=== PATIENT | female | born 1955 | race American Indian/Alaskan Native ===

== ENCOUNTER 2018-06-14 22:54 | Inpatient (IN) | payer MEDICARE, OTHER ==
[2018-06-14 23:12] VITALS: BMI 33.6
--- NOTE | 2018-06-14 23:24 | ED PDOC ---
Arrival/HPI - General Chief Complaint: Abdominal Pain Time Seen by Provider: 06/14/18 23:06 Historian: Patient - History of Present Illness Narrative History of Present Illness (Text): 06/14/18 23:24 Mackenzie Gagnon is a 63 year old female, whose past medical history includes colitis, diverticulitis, GERD, uterine fibroid, UTI, diabetes, anemoa, spinal stenosis, and anxiety, who presents to the complaining of abdominal pain. Patient states she has been experiencing intermittent LLQ pain for the past 3 weeks with associated constipation. Patient denies any fever, chills, chest pain , shortness of breath, nausea, vomiting, urinary symptoms, back pain, headache, dizziness, or any other complaints. Time/Duration: < month (3 weeks) Symptom Onset: Gradual Symptom Course: Intermittent Activities at Onset: Light Context: Home Past Medical History - Provider Review Nursing Documentation Reviewed: Yes - Past History Past History: No Previous - Infectious Disease Hx of Infectious Diseases: None - Tetanus Immunization Tetanus Immunization: Unknown - Cardiac Hx Cardiac Disorders: Yes Hx Hypertension: Yes - Pulmonary Hx Respiratory Disorders: Yes Hx Asthma: Yes (Some times. uses advair sometimes.) - Neurological Hx Neurological Disorder: No - HEENT Hx HEENT Disorder: Yes (Right ear hearing diminished , Hissing voice in Right ear.) Hx Deafness: Yes (Right ear.) - Renal Hx Renal Disorder: No - Endocrine/Metabolic Hx Endocrine Disorders: Yes Hx Diabetes Mellitus Type 2: Yes - Hematological/Oncological Hx Blood Disorders: Yes Hx Anemia: Yes Hx Sickle Cell Disease: Yes - Integumentary Hx Dermatological Disorder: No - Musculoskeletal/Rheumatological Hx Musculoskeletal Disorders: Yes Hx Back Pain: Yes Hx Falls: Yes Hx Spinal Stenosis: Yes - Gastrointestinal Hx Gastrointestinal Disorders: Yes (colitis and diverticulitis) Hx Gastroesophageal Reflux: Yes - Genitourinary/Gynecological Hx Genitourinary Disorders: Yes Other/Comment: Fibroid Hx positive. - Psychiatric Hx Psychophysiologic Disorder: Yes Hx Anxiety: Yes Hx Substance Use: No - Past Surgical History Past Surgical History: No Previous - Surgical History Other/Comment: Endoscopy + colonoscopy-2 polyps removed. - Anesthesia Hx Anesthesia: Yes Hx Anesthesia Reactions: No Hx Malignant Hyperthermia: No - Suicidal Assessment Feels Threatened In Home Enviroment: No Family/Social History - Physician Review Nursing Documentation Reviewed: Yes Family/Social History: Unknown Family HX Smoking Status: Never Smoked Hx Alcohol Use: No Hx Substance Use: No Hx Substance Use Treatment: No Allergies/Home Meds Allergies/Adverse Reactions: Allergies ketorolac tromethamine [From Toradol] Allergy (Verified 06/14/18 23:12) ANAPHYLAXIS Home Medications: Home Meds Medication Instructions Recorded Confirmed Carvedilol [Coreg] 12.5 mg PO BID 09/24/12 12/14/16 Rosuvastatin Calcium [Crestor] 20 mg PO DAILY 09/16/14 12/14/16 Albuterol Sulfate [Proair Hfa] 0.09 mg IH QID PRN 03/18/15 12/02/16 Dexlansoprazole [Dexilant] 60 mg PO DAILY 03/18/15 12/14/16 Zolpidem [Ambien] 10 mg PO HS 03/18/15 12/14/16 Review of Systems - Physician Review All systems were reviewed & negative as marked: Yes - Review of Systems Constitutional: Normal. absent: Fevers Eyes: Normal ENT: Normal Respiratory: Normal. absent: SOB, Cough Cardiovascular: Normal. absent: Chest Pain Gastrointestinal: Abdominal Pain, Constipation. absent: Diarrhea Genitourinary Female: Normal. absent: Dysuria, Frequency, Hematuria, Urine Output Changes Musculoskeletal: Normal. absent: Back Pain, Neck Pain Skin: Normal. absent: Rash Neurological: Normal. absent: Headache, Dizziness Endocrine: Normal Hemo/Lymphatic: Normal Psychiatric: Normal Physical Exam Vital Signs Reviewed: Yes Vital Signs Temp Pulse Resp BP Pulse Ox 06/15/18 04:30 57 L 16 128/81 96 06/15/18 03:12 98.6 F 63 18 122/71 97 06/14/18 23:11 97.6 F 63 19 149/76 99 Temperature: Afebrile Blood Pressure: Normal Pulse: Regular Respiratory Rate: Normal Appearance: Positive for: Well-Appearing, Non-Toxic, Comfortable Pain Distress: None Mental Status: Positive for: Alert and Oriented X 3 - Systems Exam Head: Present: Atraumatic, Normocephalic Pupils: Present: PERRL Extroacular Muscles: Present: EOMI Conjunctiva: Present: Normal Mouth: Present: Moist Mucous Membranes Neck: Present: Normal Range of Motion Respiratory/Chest: Present: Clear to Auscultation, Good Air Exchange. No: Respiratory Distress, Accessory Muscle Use Cardiovascular: Present: Regular Rate and Rhythm, Normal S1, S2. No: Murmurs Abdomen: Present: Tenderness (LLQ tenderness). No: Distention, Peritoneal Signs Back: Present: Normal Inspection Upper Extremity: Present: Normal Inspection. No: Cyanosis, Edema Lower Extremity: Present: Normal Inspection. No: Edema Neurological: Present: GCS=15, CN II-XII Intact, Speech Normal Skin: Present: Warm, Dry, Normal Color. No: Rashes Psychiatric: Present: Alert, Oriented x 3, Normal Insight, Normal Concentration Medical Decision Making ED Course and Treatment: 06/14/18 23:24 Impression: 63 year old female brought in for LLQ abdominal pain and constipation. Plan: -- CT Abdomen and Pelvis with IV contrast -- Labs, lipase -- Urinalysis -- IV fluids -- Morphine -- Zofran -- Reassess and disposition Progress Notes: 06/15/18 05:09 CT Abdomen and Pelvis reviewed, shows: Nonspecific gastritis thickening likely due to under distention. Correlation with clinical data is recommended if gastritis is suspected. Diverticulosis. Moderate amount of stool in the colon. Nonspecific colonic wall thickening. Correlation with patient's clinical history of constipation versus stool relate colitis versus under distention is recommended. No acute findings. 06/15/18 05:[address] Mustafa, who is aware and agrees with plan. Accepts pt in to his service. Pt will go to [facility] observation for colitis and UTI. Requests Dr. Alves on consult. - Lab Interpretations Lab Results: 06/14/18 23:47 06/15/18 00:50 Lab Results 06/15/18 03:25: Urine Color Yellow, Urine Appearance Clear, Urine pH 6.0, Ur Specific [place] 1.015, Urine Protein Negative, Urine Glucose (UA) Negative, Urine Ketones Negative, Urine Blood Trace-intact H, Urine Nitrate Negative, Urine Bilirubin Negative, Urine Urobilinogen 0.2, Ur Leukocyte Esterase Large H , Urine RBC 0 - 2, Urine WBC 10 - 15, Ur Epithelial Cells 1 - 3, Urine Bacteria Small 06/15/18 00:50: Sodium 143, Potassium 4.0, Chloride 107, Carbon Dioxide 28, Anion Gap 12, BUN 14, Creatinine 1.1, Est GFR ( Amer) > 60, Est GFR (Non- Af Amer) 50, Random Glucose 95, Calcium 9.4, Total Bilirubin 0.3, AST 31, ALT 26 , Alkaline Phosphatase 117, Total Protein 6.8, Albumin 3.9, Globulin 2.9, Albumin/Globulin Ratio 1.3, Lipase 207 06/14/18 23:47: WBC 7.7, RBC 4.19, Hgb 10.6 L, Hct 32.0 L, MCV 76.4 L, MCH 25.3 , MCHC 33.1, RDW 14.9 H, Plt Count 185, MPV 9.8 06/14/18 23:29: POC Glucose (mg/dL) 73 I have reviewed the lab results: Yes - RAD Interpretation Radiology Orders: 06/14/18 23:26 ABD & PELVIS IV CONTRAST ONLY [CT] Stat Carpet Installer: Radiologist - Medication Orders Current Medication Orders: Sodium Chloride (Sodium Chloride 0.9%) 1,000 mls @ 100 mls/hr IV .Q10H MARIA EUGENIA Last Admin: 06/14/18 23:50 Dose: 100 mls/hr eMAR Start Stop Document 06/14/18 23:50 KATHY (Rec: 06/14/18 23:56 [id number] Intravenous Solution Start Date 06/14/18 Start Time 23:50 Ceftriaxone Sodium (Rocephin 1 Gram Ivpb) 1 gm in 100 mls @ 200 mls/hr IV ONCE STA PRN Reason: Protocol Stop: 06/15/18 05:53 Metronidazole (Flagyl) 500 mg in 100 mls @ 100 mls/hr IVPB STAT STA PRN Reason: Protocol Stop: 06/15/18 06:24 Discontinued Medications Morphine Sulfate (Morphine) 2 mg IVP STAT STA Stop: 06/14/18 23:27 Last Admin: 06/14/18 23:55 Dose: 2 mg MAR Pain Assessment Document 06/14/18 23:55 (Rec: 06/14/18 23:56 [id number] Pain Reassessment Is this a pain reassessment? Yes Sleep Is patient sleeping during reassessment? No Presence of Pain Presence of Pain Yes Pain Scale Used Pain Scale Used Numeric Location Left, Right or Bilateral Left Upper or Lower Lower Pain Location Body Site Abdomen Description Description Constant Pain Behavior Irritability Rubbing Site IVP Administration Document 06/14/18 23:55 KATHY (Rec: 06/14/18 23:56 [id number][facility] Charges for Administration # of IVP Administrations 1 Re-Assess: MAR Pain Assessment Document 06/15/18 00:55 RG (Rec: 06/15/18 03:14 RG [id number]) Pain Reassessment Is this a pain reassessment? Yes Sleep Is patient sleeping during reassessment? Yes Ondansetron HCl (Zofran Inj) 4 mg IVP ONCE ONE Stop: 06/14/18 23:27 Last Admin: 06/14/18 23:51 Dose: 4 mg IVP Administration Document 06/14/18 23:51 RG (Rec: 06/14/18 23:55 RG [id number]) Charges for Administration # of IVP Administrations 1 - Scribe Statement The provider has reviewed the documentation as recorded by the Scribe Carolyn Glez All medical record entries made by the Scribe were at my direction and personally dictated by me. I have reviewed the chart and agree that the record accurately reflects my personal performance of the history, physical exam, medical decision making, and the department course for this patient. I have also personally directed, reviewed, and agree with the discharge instructions and disposition. Disposition/Present on Arrival - Present on Arrival Any Indicators Present on Arrival: No History of DVT/PE: No History of Uncontrolled Diabetes: Yes Urinary Catheter: No History of Decub. Ulcer: No History Surgical Site Infection Following: None - Disposition Have Diagnosis and Disposition been Completed?: Yes Diagnosis: Colitis, UTI (urinary tract infection) Disposition: HOSPITALIZED Disposition Time: 05:31 Patient Plan: Observation Patient Problems: Current Active Problems Problem Status Onset Colitis Acute UTI (urinary tract infection) Acute Condition: STABLE Referrals: Alissa Mcdaniels MD [Primary Care Provider] - Follow up with primary Forms: [employer] (Khmer)
[2018-06-14] MEDS ORDERED: Morphine 2 mg/ml ISec IVP STA (23:26)
[2018-06-14] MEDS: Sodium Chloride 0.9% 1,000 ML IV SCH (23:50)
[2018-06-15 00:02] LABS: HEMOGLOBIN 10.6 g/dL (12.0-16.0); MEAN CELL VOLUME 76.4 fl (80.0-105.0); MEAN CORPUSCULAR HEMOGLOBIN 25.3 pg (25.0-35.0); MEAN CORPUSCULAR HGB CONC 33.1 g/dl (31.0-37.0); MEAN PLATELET VOLUME 9.8 fl (7.0-11.0); RBC 4.19 10^6/uL (3.5-6.1); RED CELL DISTRIBUTION WIDTH 14.9 % (11.5-14.5); WHITE BLOOD COUNT 7.7 10^3/ul (4.5-11.0)
[2018-06-15 01:15] LABS: ALB/GLOB RATIO 1.3 (1.1-1.8); ALBUMIN 3.9 g/dL (3.0-4.8); ALT/SGPT 26 U/L (7-56); AST/SGOT 31 U/L (14-36); BLOOD UREA NITROGEN 14 mg/dL (7-21); CALCIUM 9.4 mg/dL (8.4-10.5); GFR AFRICAN-AMERICAN > 60; GFR NON-AFRICAN AMERICAN 50; LIPASE 207 U/L (23-300)
[2018-06-15] MEDS ORDERED: Iodixanol 320 MG/ML 100 ML BOTTLE IV ONE (02:09)
[2018-06-15 03:52] LABS: URINE BILIRUBIN NEGATIVE (NEGATIVE); URINE BLOOD TRACE-INTACT (NEGATIVE); URINE GLUCOSE (UA) NEGATIVE (NEGATIVE); URINE LEUKOCYTE ESTERASE LARGE Leu/uL (NEGATIVE); URINE PROTEIN NEGATIVE mg/dL (<30 mg/dL); URINE UROBILINOGEN 0.2 E.U./dL (<1 E.U./dL)
[2018-06-15 03:55] LABS: URINE APPEARANCE CLEAR (CLEAR); URINE COLOR YELLOW (YELLOW)
[2018-06-15 03:59] LABS: URINE RBC 0 - 2 /hpf (0-2)
[2018-06-15 04:00] LABS: URINE BACTERIA SMALL (NEG)
[2018-06-15] MEDS ORDERED: cefTRIAXone 1 gm 1 GM/100 ML BAG IV STA (05:24)
[2018-06-15] MEDS ORDERED: metroNIDAZOLE IV 500 mg/100 ml 500 MG/100 ML BAG IVPB STA (05:25)
[2018-06-15] MEDS ORDERED: Sodium Chloride 0.9% 1,000 ML IV STA (05:34)
[2018-06-15] MEDS: Morphine 2 mg/ml ISec IVP PRN ×2 (07:27→14:32)
--- NOTE | 2018-06-15 08:41 | HP ---
Copied To: James Mustafa DO Attending MD: James Mustafa DO HISTORY OF PRESENT ILLNESS: I saw her in the emergency room. I was called down to put her in the hospice. She is a 63-year-old female, who presents with abdominal pain for a few days, left lower quadrant. It has been going on for the past 3 weeks, but it got worse and now she having bad constipation and she is very uncomfortable. This is a 63-year-old female. PAST MEDICAL HISTORY: Colitis, diverticulitis, gastroesophageal reflux disease, uterine fibroids, UTI, diabetes, anemia, spinal stenosis, anxiety, abdominal pain, hypertension, asthma, diminished hearing on the right, hissing voice in the right ear, deafness in the right ear, back pain, falls. PAST SURGICAL HISTORY: She has had endoscopies, colonoscopies, 2 polyps removed. FAMILY HISTORY: Hypertension in the family. SOCIAL HISTORY: No smoker. No drinking. No drugs. ALLERGIES: ALLERGIC TO TORADOL. MEDICATIONS: She is on Coreg, Crestor, ProAir, Dexilant and Ambien. REVIEW OF SYSTEMS: She has no fevers. No acute vision or hearing changes. No shortness of breath or cough. No chest pain or palpitations. She has abdominal pain and constipation. No problems urinating. No back pain. No neck pain. No rashes or ulcers. No headache or dizziness. A little anxiety right now. PHYSICAL EXAMINATION: VITAL SIGNS: She has a 98.6 temp, 63 pulse, 18 respiratory rate, 122/71 blood pressure, 97% O2 sat on room air. GENERAL: She is well appearing, mildly toxic and uncomfortable in the emergency room, alert and oriented x3. HEENT: Head is atraumatic, normocephalic. Extraocular muscles are intact. Pupils equal, reactive to light. Throat is dry. NECK: Supple. HEART: Regular rate. Normal S1, S2. LUNGS: Decreased breath sounds bilaterally, poor inspiration effort, but there are no wheezes, rhonchi or rales. ABDOMEN: Left lower quadrant tenderness. Actually, the low abdomen has quite discomfort, but there are bowel sounds and is fairly soft. No guarding or rebound. No CVA tenderness. EXTREMITIES: Have no edema. NEUROLOGIC: GCS is 15. Cranial nerves II through XII grossly intact. Normal speech. Neurologically seems to be intact at this time. SKIN: Warm and dry. No apparent rashes or ulcers I could appreciate. LYMPHATICS: Thyroid midline. No palpable lymphadenopathy appreciated. Alert and oriented x3. LABORATORY DATA: She had multiple tests done. The CAT scan showed gastric thickening, likely due to under distention. Moderate amount of stool in the colon. 7.7 white count, 10.6 hemoglobin, 32 hematocrit with 185 platelets. Sodium is 143, potassium is 4, chloride 107, carbon dioxide 28, anion gap is 12, BUN 14, creatinine 1.1, GFR is greater than 60, sugar is 95, calcium is 9.4, total bili is 0.3, AST 31, ALT is 26, alk phos 117, total protein 6.8, albumin is 3.9, globulin 2.9, lipase 207. Last blood sugar was 73. Urine showed blood in the urine, white count 10-15, bacteria small. IMPRESSION: She was given Rocephin in the emergency room. I will continue that. I will consult GI and Infectious Disease. She will have IV fluids. She was given metronidazole and ceftriaxone in the ER, IV fluids. I ordered Zofran, Protonix and Dulcolax suppository and we will see how she does. Mackenzie Gagnon who has got abdominal pain, urinary tract infection, constipation. James Mustafa DO
--- NOTE | 2018-06-15 09:10 | CT ---
Date of service: 06/15/2018 PROCEDURE: CT Abdomen and Pelvis without intravenous contrast HISTORY: abdominal pain COMPARISON: None. TECHNIQUE: Technique. Contrast dose: Radiation dose: Total exam DLP = mGy-cm. This CT exam was performed using one or more of the following dose reduction techniques: Automated exposure control, adjustment of the mA and/or kV according to patient size, and/or use of iterative reconstruction technique. FINDINGS: LOWER THORAX: Unremarkable. LIVER: Unremarkable. No gross lesion or ductal dilatation. GALLBLADDER AND BILE DUCTS: Unremarkable. PANCREAS: Unremarkable. No gross lesion or ductal dilatation. SPLEEN: Unremarkable. ADRENALS: Unremarkable. No mass. KIDNEYS AND URETERS: Unremarkable. No hydronephrosis. No solid mass. VASCULATURE: Unremarkable. No aortic aneurysm. BOWEL: Unremarkable. No obstruction. No gross mural thickening. APPENDIX: Unremarkable. Normal appendix. PERITONEUM: Unremarkable. No free fluid. No free air. LYMPH NODES: Unremarkable. No enlarged lymph nodes. BLADDER: Unremarkable. REPRODUCTIVE: Unremarkable. BONES: No acute fracture. OTHER FINDINGS: None. IMPRESSION: Unremarkable non contrast enhanced CT of the abdomen and pelvis.
--- NOTE | 2018-06-15 09:19 | CARD ---
APPROVED REPORT Date of service: 06/15/2018 EKG Measurement Heart [id number] <Conclusion> Normal sinus rhythm Normal ECG
[2018-06-15] MEDS ORDERED: cefTRIAXone 1 gm 1 GM/100 ML BAG IVPB SCH (10:00)
--- NOTE | 2018-06-15 10:21 | CP.PCM.CON ---
<Taylor Corley - Last Filed: 06/15/18 10:09> History of Present Illness - History of Present Illness History of Present Illness: This is 63yF with a past medical history of chronic constipation on Linzess, colitis, diverticulosis, GERD, uterine fibroid, UTI, diabetes, anemia, spinal stenosis, and anxiety, who presents to the complaining of abdominal pain. Patient states she has been experiencing intermittent lower abdominal pain for the past 1 week with associated constipation and nausea. Pt denies any rectal bleeding, she had a bowel movement two days ago that was hard with straining. Reports she is on linzess but it has stopped working. Not on miralax. Pt and her daughter report having an EGD and Colonoscopy last month with Dr. Kraig Oscar and he reported diverticulosis. No report for review, daughter said she beverley bring the reports in today from home. She was started on PPI by her GI doc. CT imaging reviewed and it shows stool and possible colitis. Per daughter she is recurrent UTIs and treated a few months ago with abx. Patient denies any fever, chills, chest pain, shortness of breath, nausea, vomiting, urinary symptoms, back pain, headache, dizziness, or any other complaints. ROS: A 12pt ROS was negative except as above PmHX: As stated above PsHX: Denies FHx: neg for colon cancer SHx: Denies etoh,tobacco or drugs Past Patient History - Infectious Disease Hx of Infectious Diseases: None - Tetanus Immunizations Tetanus Immunization: Unknown - Past Medical History & Family History Past Medical History?: Yes - Past Social History Smoking Status: Never Smoked - CARDIAC Hx Cardiac Disorders: Yes Hx Hypertension: Yes - PULMONARY Hx Respiratory Disorders: Yes Hx Asthma: Yes (Some times. uses advair sometimes.) - NEUROLOGICAL Hx Neurological Disorder: No - HEENT Hx HEENT Problems: Yes (Right ear hearing diminished , Hissing voice in Right ear.) Hx Deafness: Yes (Right ear.) - RENAL Hx Chronic Kidney Disease: No - ENDOCRINE/METABOLIC Hx Endocrine Disorders: Yes Hx Diabetes Mellitus Type 2: Yes - HEMATOLOGICAL/ONCOLOGICAL Hx Blood Disorders: Yes Hx Anemia: Yes Hx Sickle Cell Disease: Yes - INTEGUMENTARY Hx Dermatological Problems: No - MUSCULOSKELETAL/RHEUMATOLOGICAL Hx Musculoskeletal Disorders: Yes Hx Back Pain: Yes Hx Falls: Yes Hx Spinal Stenosis: Yes - GASTROINTESTINAL Hx Gastrointestinal Disorders: Yes (colitis and diverticulitis) Hx Gastroesophageal Reflux: Yes - GENITOURINARY/GYNECOLOGICAL Hx Genitourinary Disorders: Yes Other/Comment: Fibroid Hx positive. - PSYCHIATRIC Hx Psychophysiologic Disorder: Yes Hx Anxiety: Yes Hx Substance Use: No - SURGICAL HISTORY Other/Comment: Endoscopy + colonoscopy-2 polyps removed. - ANESTHESIA Hx Anesthesia: Yes Hx Anesthesia Reactions: No Hx Malignant Hyperthermia: No Meds Allergies/Adverse Reactions: Allergies Allergy/AdvReac Type Severity Reaction Status Date / Time ketorolac tromethamine Allergy ANAPHYLAXIS Verified 06/15/18 11:43 [From Toradol] - Medications Medications: Current Medications Sodium Chloride (Sodium Chloride 0.9%) 1,000 mls @ 100 mls/hr IV .Q10H ON LICENSE OF [facility] Last Admin: 06/14/18 23:50 Dose: 100 mls/hr Sodium Chloride (Sodium Chloride 0.9%) 1,000 mls @ 100 mls/hr IV .Q10H STA Stop: 06/15/18 15:33 Last Admin: 06/15/18 07:26 Dose: 100 mls/hr Ceftriaxone Sodium (Rocephin 1 Gram Ivpb) 1 gm in 100 mls @ 100 mls/hr IVPB DAILY ON LICENSE OF [facility] PRN Reason: Protocol Last Admin: 06/15/18 09:36 Dose: Not Given Morphine Sulfate (Morphine) 2 mg IVP Q3H PRN PRN Reason: Pain, moderate (4-7) Last Admin: 06/15/18 07:27 Dose: 2 mg Ondansetron HCl (Zofran Inj) 4 mg IVP Q6H PRN PRN Reason: Nausea/Vomiting Pantoprazole Sodium (Protonix Inj) 40 mg IVP DAILY ON LICENSE OF [facility] Last Admin: 06/15/18 09:38 Dose: 40 mg Polyethylene Glycol (Miralax) 17 gm PO DAILY ON LICENSE OF [facility] Physical Exam - Constitutional Appears: Non-toxic, No Acute Distress - Head Exam Head Exam: ATRAUMATIC, NORMAL INSPECTION, NORMOCEPHALIC - Eye Exam Eye Exam: EOMI, Normal appearance, PERRL Pupil Exam: PERRL - ENT Exam ENT Exam: Normal External Ear Exam - Neck Exam Neck exam: Positive for: Full Rom, Normal Inspection - Respiratory Exam Respiratory Exam: Clear to Auscultation Bilateral, NORMAL BREATHING PATTERN - Cardiovascular Exam Cardiovascular Exam: REGULAR RHYTHM, RRR, +S1, +S2 - GI/Abdominal Exam GI & Abdominal Exam: Normal Bowel Sounds, Soft, Tenderness. absent: Distended, Guarding, Organomegaly - Rectal Exam Rectal Exam: Deferred - Extremities Exam Extremities exam: Positive for: full ROM, normal inspection - Back Exam Back exam: NORMAL INSPECTION - Neurological Exam Neurological exam: Alert, Oriented x3 - Psychiatric Exam Psychiatric exam: Normal Affect, Normal Mood - Skin Skin Exam: Dry, Intact, Normal Color, Warm Results - Vital Signs Recent Vital Signs: Last Vital Signs Temp 98.1 F 06/15/18 07:07 Pulse 57 L 06/15/18 07:07 Resp 18 06/15/18 07:07 BP 132/68 06/15/18 07:07 Pulse Ox 96 06/15/18 07:07 - Labs Result Diagrams: 06/14/18 23:47 06/15/18 00:50 Assessment & Plan - Assessment and Plan (Free Text) Assessment: This is a 63yF here for abdominal pain. 1. Abdominal pain- questionable colitis 2. Chronic constipation 3. UTI 4. GERD Plan: -Continue supportive care and pain control -Anti-emetics prn -No WBC or fevers, CT with constipation, colitis? -IV abx per primary team -Advance to clear liquid diet -Mirlax daily -PPI daily -Will get records from recent EGD/Colonoscopy from her private GI doc -Will continue to follow closely <Russ Alves - Last Filed: 06/15/18 12:48> Meds - Medications Medications: Current Medications Sodium Chloride (Sodium Chloride 0.9%) 1,000 mls @ 100 mls/hr IV .Q10H ON LICENSE OF [facility] Last Admin: 06/14/18 23:50 Dose: 100 mls/hr Sodium Chloride (Sodium Chloride 0.9%) 1,000 mls @ 100 mls/hr IV .Q10H STA Stop: 06/15/18 15:33 Last Admin: 06/15/18 07:26 Dose: 100 mls/hr Ceftriaxone Sodium (Rocephin 1 Gram Ivpb) 1 gm in 100 mls @ 100 mls/hr IVPB DAILY ON LICENSE OF [facility] PRN Reason: Protocol Last Admin: 06/15/18 09:36 Dose: Not Given Metronidazole (Flagyl) 500 mg in 100 mls @ 100 mls/hr IVPB Q8 MARIA EUGENIA PRN Reason: Protocol Morphine Sulfate (Morphine) 2 mg IVP Q3H PRN PRN Reason: Pain, moderate (4-7) Last Admin: 06/15/18 07:27 Dose: 2 mg Ondansetron HCl (Zofran Inj) 4 mg IVP Q6H PRN PRN Reason: Nausea/Vomiting Pantoprazole Sodium (Protonix Inj) 40 mg IVP DAILY ON LICENSE OF [facility] Last Admin: 06/15/18 09:38 Dose: 40 mg Polyethylene Glycol (Miralax) 17 gm PO DAILY ON LICENSE OF [facility] Results - Vital Signs Recent Vital Signs: Last Vital Signs Temp 98.1 F 06/15/18 07:07 Pulse 57 L 06/15/18 07:07 Resp 18 06/15/18 07:07 BP 132/68 06/15/18 07:07 Pulse Ox 96 06/15/18 07:07 - Labs Result Diagrams: 06/14/18 23:47 06/15/18 00:50 Attending/Attestation - Attestation I have personally seen and examined this patient.: Yes I have fully participated in the care of the patient.: Yes I have reviewed all pertinent clinical information: Yes Notes (Text): 06/15/18 12:42 I have seen and examined patient with GI fellow. Agree with above documentation with the following additions. In brief, this is a 63 year old female with history of DM, spinal stenosis, chronic constipation, GERD, anxiety who presents to hospital with complaint of progressive abdominal pain for the past one week. She describes a crampy bilateral lower quadrant pain, 4/10 intensity that is worse on movement and meal consumption. She notes ongoing significant constipation (previously used Linzess) with frequent straining during defecation with passage of hard stool. She also notes recurrent UTI, most recently treated one month ago. She otherwise denies nausea, vomiting, fever/chills, weight loss, or rectal bleeding. She had an EGD/colonoscopy 1 month ago which showed diverticulosis, otherwise normal as per patient. Review of vitals from today are normal. DM Spinal stenosis Chronic constipation GERD Anxiety UTI Abdominal pain - CT imaging reviewed by me showing fecal retention, ?distal colitis - Liquid diet as tolerated - Continue with antibiotic therapy - Follow up urine culture results - Obtain recent endoscopic records - Maintain bowel regimen to prevent recurrent constipation - Will continue to monitor patient clinical course
[2018-06-15] MEDS: metroNIDAZOLE IV 500 mg/100 ml 500 MG/100 ML BAG IVPB SCH ×2 (13:32→22:16)
[2018-06-15] MEDS: POLYETHYLENE GLYCOL 3350 17 GM/Dose PACKET PO SCH (13:33)
[2018-06-15] MEDS ORDERED: Pneumococcal 23-Valent Vaccine IM ONE (14:01)
[2018-06-15] MEDS: Sodium Chloride 0.9% 1,000 ML IV SCH (14:34)
--- NOTE | 2018-06-15 15:46 | CP.PCM.CON ---
<Karina Ponce - Last Filed: 06/15/18 15:44> History of Present Illness - History of Present Illness History of Present Illness: PGY-2 infectious disease consult note for Dr. Rothman's service 63 yo female with a past medical history of chronic constipation on Linzess, colitis, diverticulosis, GERD, uterine fibroid, UTI, diabetes, anemia, spinal stenosis, and anxiety, who presents to the complaining of abdominal pain. Patient states she has been experiencing lower abdominal pain for the past 1 week with associated constipation and nausea. Patient describes the pain as crampy, started as intermittented buit became consistent. She reports constipation, last BM 2 day ago. Reports she is on linzess but it has stopped working. Patient reports similar episode 2 years ago and was diagnoses with colitis and diveriticulitis. She states that she had EGD and Colonoscopy last month and was diagnosed with diverticulosis. Patient also reports is recurrent UTIs over the past few months, treated with multiple abx. Patient denies any fever, chills, chest pain, shortness of breath, vomiting, urinary symptoms, back pain, headache, dizziness, or any other complaints. PMH: chronic constipation on Linzess, colitis, diverticulosis, GERD, uterine fibroid, UTI, diabetes, anemia, spinal stenosis, and anxiety PsHX: Denies Social History: Denies alcohol, tobacco or drugs allergy: ketorolac Review of Systems - Constitutional Constitutional: absent: Chills, Fever - Cardiovascular Cardiovascular: absent: Chest Pain, Dyspnea, Palpitations - Respiratory Respiratory: absent: Cough, Dyspnea - Gastrointestinal Gastrointestinal: Abdominal Pain, Constipation, Nausea. absent: Diarrhea, Vomiting - Genitourinary Genitourinary: absent: Difficulty Urinating, Dysuria, Hematuria - Musculoskeletal Musculoskeletal: absent: Arthralgias, Muscle Weakness - Neurological Neurological: absent: Dizziness, Headaches, Weakness Past Patient History - Infectious Disease Hx of Infectious Diseases: None - Tetanus Immunizations Tetanus Immunization: Unknown - Past Medical History & Family History Past Medical History?: Yes - Past Social History Smoking Status: Never Smoked - CARDIAC Hx Cardiac Disorders: Yes Hx Hypercholesterolemia: Yes Hx Hypertension: Yes - PULMONARY Hx Respiratory Disorders: Yes Hx Asthma: Yes (Some times. uses advair sometimes.) - NEUROLOGICAL Hx Neurological Disorder: Yes - HEENT Hx HEENT Problems: Yes (Right ear hearing diminished , Hissing voice in Right ear.) Hx Deafness: Yes (Right ear.) - RENAL Hx Chronic Kidney Disease: No - ENDOCRINE/METABOLIC Hx Endocrine Disorders: Yes Hx Diabetes Mellitus Type 2: Yes - HEMATOLOGICAL/ONCOLOGICAL Hx Blood Disorders: Yes (SICKLE CELL) Hx Anemia: Yes Hx Sickle Cell Disease: Yes - INTEGUMENTARY Hx Dermatological Problems: No - MUSCULOSKELETAL/RHEUMATOLOGICAL Hx Musculoskeletal Disorders: Yes Hx Back Pain: Yes Hx Falls: Yes Hx Spinal Stenosis: Yes - GASTROINTESTINAL Hx Gastrointestinal Disorders: Yes (colitis and diverticulitis) Hx Gastroesophageal Reflux: Yes - GENITOURINARY/GYNECOLOGICAL Hx Genitourinary Disorders: Yes Other/Comment: Fibroid Hx positive. - PSYCHIATRIC Hx Psychophysiologic Disorder: Yes Hx Anxiety: Yes Hx Substance Use: No - SURGICAL HISTORY Hx Surgeries: Yes Other/Comment: Endoscopy + colonoscopy-2 polyps removed. - ANESTHESIA Hx Anesthesia: Yes Hx Anesthesia Reactions: No Hx Malignant Hyperthermia: No Meds Allergies/Adverse Reactions: Allergies Allergy/AdvReac Type Severity Reaction Status Date / Time ketorolac tromethamine Allergy ANAPHYLAXIS Verified 06/15/18 11:43 [From Toradol] - Medications Medications: Current Medications Sodium Chloride (Sodium Chloride 0.9%) 1,000 mls @ 100 mls/hr IV .Q10H [facility] Last Admin: 06/15/18 14:34 Dose: 100 mls/hr Metronidazole (Flagyl) 500 mg in 100 mls @ 100 mls/hr IVPB Q8 [facility] PRN Reason: Protocol Last Admin: 06/15/18 13:32 Dose: 100 mls/hr Cefepime HCl (Maxipime 1gm) 1 gm in 100 mls @ 100 mls/hr IVPB Q8 [facility] PRN Reason: Protocol Morphine Sulfate (Morphine) 2 mg IVP Q3H PRN PRN Reason: Pain, moderate (4-7) Last Admin: 06/15/18 14:32 Dose: 2 mg Ondansetron HCl (Zofran Inj) 4 mg IVP Q6H PRN PRN Reason: Nausea/Vomiting Pantoprazole Sodium (Protonix Inj) 40 mg IVP DAILY [facility] Last Admin: 06/15/18 09:38 Dose: 40 mg Polyethylene Glycol (Miralax) 17 gm PO DAILY [facility] Last Admin: 06/15/18 13:33 Dose: 17 gm Physical Exam - Constitutional Appears: No Acute Distress - Head Exam Head Exam: ATRAUMATIC, NORMOCEPHALIC - Eye Exam Eye Exam: EOMI, Normal appearance - ENT Exam ENT Exam: Mucous Membranes Moist - Respiratory Exam Respiratory Exam: Clear to Auscultation Bilateral, NORMAL BREATHING PATTERN. absent: Rhonchi, Wheezes, Respiratory Distress - Cardiovascular Exam Cardiovascular Exam: REGULAR RHYTHM, +S1, +S2. absent: Bradycardia, Tachycardia - GI/Abdominal Exam GI & Abdominal Exam: Normal Bowel Sounds, Soft, Tenderness. absent: Firm, Guarding - Extremities Exam Extremities exam: Positive for: normal inspection. Negative for: pedal edema, tenderness - Neurological Exam Neurological exam: Alert, Oriented x3 - Psychiatric Exam Psychiatric exam: Normal Affect, Normal Mood Results - Vital Signs Recent Vital Signs: Last Vital Signs Temp 98.1 F 06/15/18 13:26 Pulse 57 L 06/15/18 13:26 Resp 18 06/15/18 13:26 BP 132/68 06/15/18 13:26 Pulse Ox 96 06/15/18 07:07 - Labs Result Diagrams: 06/14/18 23:47 06/15/18 00:50 Assessment & Plan - Assessment and Plan (Free Text) Assessment: 63 yo female with a past medical history of chronic constipation on Linzess, colitis, diverticulosis, GERD, uterine fibroid, UTI, diabetes, anemia, spinal stenosis, and anxiety, who presents to the complaining of abdominal pain. CT abd was unremarkable. Need to consider c. diff due to recent multiple abx use. continue cefepime and flagyl. follow up blood and urine cultures. case reviewed and discussed with attending <Garett Rothman - Last Filed: 06/15/18 16:36> Meds - Medications Medications: Current Medications Sodium Chloride (Sodium Chloride 0.9%) 1,000 mls @ 100 mls/hr IV .Q10H [facility] Last Admin: 06/15/18 14:34 Dose: 100 mls/hr Metronidazole (Flagyl) 500 mg in 100 mls @ 100 mls/hr IVPB Q8 [facility] PRN Reason: Protocol Last Admin: 06/15/18 13:32 Dose: 100 mls/hr Cefepime HCl (Maxipime 1gm) 1 gm in 100 mls @ 100 mls/hr IVPB Q8 [facility] PRN Reason: Protocol Morphine Sulfate (Morphine) 2 mg IVP Q3H PRN PRN Reason: Pain, moderate (4-7) Ondansetron HCl (Zofran Inj) 4 mg IVP Q6H PRN PRN Reason: Nausea/Vomiting Pantoprazole Sodium (Protonix Inj) 40 mg IVP DAILY [facility] Last Admin: 06/15/18 09:38 Dose: 40 mg Polyethylene Glycol (Miralax) 17 gm PO DAILY [facility] Last Admin: 06/15/18 13:33 Dose: 17 gm Results - Vital Signs Recent Vital Signs: Last Vital Signs Temp 98.1 F 06/15/18 13:26 Pulse 57 L 06/15/18 13:26 Resp 18 06/15/18 13:26 BP 132/68 06/15/18 13:26 Pulse Ox 96 06/15/18 07:07 - Labs Result Diagrams: 06/14/18 23:47 06/15/18 00:50 Assessment & Plan - Assessment and Plan (Free Text) Assessment: Infectious Diseases Attending Physician Attestation and Addendum Patient seen and examined, discussed with medical claims specialist. I have the pertinent clinical information, HPI, past medical, social and personal histories , review of systems, physical exam and laboratory information. I agree with the above findings, assessment and plan. In addition, will start the patient on Merrem for this patient with abdominal pain, cannot rule out left sided colitis / diverticulitis. Patient has been on multiple antibiotics for recurrent UTI in the past 2-3 months. Will follow up blood and urine cx.
[2018-06-15] MEDS: Morphine 2 mg/2 mL syringe IVP PRN (20:29)
[2018-06-15] MEDS: Insulin Reg-LOW-Coverage SC SCH (21:46)
[2018-06-15] MEDS: Cefepime 1gm in NS 100ml 1 GM/100 ML BAG IVPB SCH (23:16)
[2018-06-16] MEDS: Morphine 2 mg/2 mL syringe IVP PRN ×3 (03:23→16:03)
[2018-06-16] MEDS: Cefepime 1gm in NS 100ml 1 GM/100 ML BAG IVPB SCH ×3 (05:32→21:40)
[2018-06-16] MEDS: metroNIDAZOLE IV 500 mg/100 ml 500 MG/100 ML BAG IVPB SCH ×3 (06:35→22:58)
[2018-06-16 07:05] LABS: HEMOGLOBIN 10.1 g/dL (12.0-16.0); MEAN CELL VOLUME 77.1 fl (80.0-105.0); MEAN CORPUSCULAR HEMOGLOBIN 25.4 pg (25.0-35.0); MEAN PLATELET VOLUME 8.9 fl (7.0-11.0); RBC 3.97 10^6/uL (3.5-6.1); RED CELL DISTRIBUTION WIDTH 14.5 % (11.5-14.5); WHITE BLOOD COUNT 6.1 10^3/ul (4.5-11.0)
[2018-06-16 07:16] LABS: ALB/GLOB RATIO 1.2 (1.1-1.8); ALBUMIN 3.5 g/dL (3.0-4.8); ALT/SGPT 28 U/L (7-56); AST/SGOT 28 U/L (14-36); BLOOD UREA NITROGEN 9 mg/dL (7-21); CALCIUM 8.9 mg/dL (8.4-10.5); GFR AFRICAN-AMERICAN > 60; GFR NON-AFRICAN AMERICAN 56
[2018-06-16] MEDS: Insulin Reg-LOW-Coverage SC SCH ×4 (07:59→22:59)
[2018-06-16] MEDS: POLYETHYLENE GLYCOL 3350 17 GM/Dose PACKET PO SCH ×2 (09:31→17:48)
--- NOTE | 2018-06-16 13:32 | PN ---
Copied To: Ariel Jimenez MD Attending MD: Ariel Jimenez MD DATE: 06/16/2018 SUBJECTIVE: The patient is in bed in no acute distress. PHYSICAL EXAMINATION VITAL SIGNS: Temperature is 98, blood pressure is 140/80, respiratory rate of 20, heart rate of 60. HEENT: Examination of HEENT is unremarkable. NECK: Supple. LUNGS: Have decreased breath sounds. HEART: Normal S1 and S2. ABDOMEN: Soft. LABORATORY DATA: Reveals a white count of 6.1, hemoglobin of 10, platelets of 167. Chemistries are noted. Blood cultures are negative. The patient is on IV Flagyl, IV cefepime. CAT scan of the abdomen and pelvis is reviewed. ASSESSMENT AND PLAN: This is a 63-year-old female with history of chronic constipation, and colitis, and diverticulosis, gastroesophageal reflux diseases, uterine fibroid, diabetic, anemia, spinal stenosis, anxiety, admitted with abdominal pain with a negative CAT scan. Currently, on Flagyl and cefepime. The patient had a normal white count. Normal chemistries. Unremarkable urine, although she did have a large leukocyte esterase and 10-15 wbcs, negative blood cultures. We will check on the urine cultures, which is pending on cefepime, Flagyl. Ariel Jimenez MD
--- NOTE | 2018-06-16 13:38 | CP.PCM.PN ---
<ChiquisfridacrisThomas - Last Filed: 06/16/18 14:26> Subjective - Date & Time of Evaluation Date of Evaluation: 06/16/18 Time of Evaluation: 07:15 - Subjective Subjective: PGY6 GI Fellow Progress Note Patient seen and examined bedside this morning. The patient states that she is feeling ongoing lower pelvic discomfort, worse after urination. She denies any bowel movements since admission and is concerned with her constipation as well. No significant events overnight. 12 system ROS performed and negative except where stated. Objective - Vital Signs/Intake and Output Vital Signs (last 24 hours): Temp Pulse Resp BP Pulse Ox 98.1 F 59 L 20 140/84 99 06/16/18 07:57 06/16/18 07:57 06/16/18 07:57 06/16/18 07:57 06/16/18 07:57 - Medications Medications: Current Medications Glimepiride (Amaryl) 2 mg PO DAILY [facility] Last Admin: 06/16/18 09:31 Dose: 2 mg Sodium Chloride (Sodium Chloride 0.9%) 1,000 mls @ 100 mls/hr IV .Q10H [facility] Last Admin: 06/15/18 14:34 Dose: 100 mls/hr Metronidazole (Flagyl) 500 mg in 100 mls @ 100 mls/hr IVPB Q8 [facility] PRN Reason: Protocol Last Admin: 06/16/18 13:28 Dose: 100 mls/hr Cefepime HCl (Maxipime 1gm) 1 gm in 100 mls @ 100 mls/hr IVPB Q8 [facility] PRN Reason: Protocol Last Admin: 06/16/18 13:27 Dose: 100 mls/hr Insulin Human Regular (Humulin R Low) 0 units SC ACHS [facility] PRN Reason: Protocol Last Admin: 06/16/18 11:42 Dose: Not Given Morphine Sulfate (Morphine) 2 mg IVP Q3H PRN PRN Reason: Pain, moderate (4-7) Last Admin: 06/16/18 08:07 Dose: 2 mg Ondansetron HCl (Zofran Inj) 4 mg IVP Q6H PRN PRN Reason: Nausea/Vomiting Pantoprazole Sodium (Protonix Inj) 40 mg IVP DAILY [facility] Last Admin: 06/16/18 09:31 Dose: 40 mg Polyethylene Glycol (Miralax) 17 gm PO DAILY [facility] Last Admin: 06/16/18 09:31 Dose: 17 gm Sitagliptin Phosphate (Januvia) 100 mg PO DAILY [facility] Last Admin: 06/16/18 09:31 Dose: 100 mg - Constitutional Appears: Non-toxic, No Acute Distress - Eye Exam Eye Exam: EOMI, PERRL - ENT Exam ENT Exam: Mucous Membranes Moist - Respiratory Exam Respiratory Exam: Clear to Ausculation Bilateral. absent: Rales, Rhonchi, Wheezes - Cardiovascular Exam Cardiovascular Exam: RRR, +S1, +S2 - GI/Abdominal Exam GI & Abdominal Exam: Soft, Tenderness (suprapubic), Normal Bowel Sounds. absent : Distended, Firm, Guarding, Rigid, Organomegaly - Extremities Exam Extremities Exam: Normal Inspection. absent: Pedal Edema - Neurological Exam Neurological Exam: Alert, Awake, Oriented x3 - Psychiatric Exam Psychiatric exam: Normal Affect, Normal Mood - Skin Skin Exam: Dry, Warm Assessment and Plan - Assessment and Plan (Free Text) Assessment: Patient is a 63yo female with PMHx significant for chronic constipation previously on Linzess, diverticulosis, GERD, uterine fibroid, UTI, diabetes, anemia, spinal stenosis, and anxiety who presented for abdominal pain -Abdominopelvic pain - suprapubic -Abnormal U/S - concern for UTI/Cystitis -Chronic idiopathic constipation -Diverticulosis Plan: -Ongoing dysuria noted - concern for UTI/cystitis -Continue antibiotic coverage as ordered -Urine/blood culture pending -Consider termporary use of phenazopyridine for dysuria -Continue Miralax 17g PO BID -Diet as tolerated -Consider checking post-void residuals with bladder scanner -No significant colitis noted on imaging Case discussed with GI attending, Dr Bardales <Bryson Bardales - Last Filed: 06/16/18 19:07> Objective - Vital Signs/Intake and Output Vital Signs (last 24 hours): Temp Pulse Resp BP Pulse Ox 98 F 63 20 131/75 98 06/16/18 15:09 06/16/18 15:09 06/16/18 15:09 06/16/18 15:09 06/16/18 15:09 - Medications Medications: Current Medications Glimepiride (Amaryl) 2 mg PO DAILY [facility] Last Admin: 06/16/18 09:31 Dose: 2 mg Sodium Chloride (Sodium Chloride 0.9%) 1,000 mls @ 100 mls/hr IV .Q10H [facility] Last Admin: 06/15/18 14:34 Dose: 100 mls/hr Metronidazole (Flagyl) 500 mg in 100 mls @ 100 mls/hr IVPB Q8 [facility] PRN Reason: Protocol Last Admin: 06/16/18 13:28 Dose: 100 mls/hr Cefepime HCl (Maxipime 1gm) 1 gm in 100 mls @ 100 mls/hr IVPB Q8 [facility] PRN Reason: Protocol Last Admin: 06/16/18 13:27 Dose: 100 mls/hr Insulin Human Regular (Humulin R Low) 0 units SC ACHS [facility] PRN Reason: Protocol Last Admin: 06/16/18 17:15 Dose: Not Given Morphine Sulfate (Morphine) 2 mg IVP Q3H PRN PRN Reason: Pain, moderate (4-7) Last Admin: 06/16/18 16:03 Dose: 2 mg Ondansetron HCl (Zofran Inj) 4 mg IVP Q6H PRN PRN Reason: Nausea/Vomiting Last Admin: 06/16/18 16:02 Dose: 4 mg Pantoprazole Sodium (Protonix Inj) 40 mg IVP DAILY [facility] Last Admin: 06/16/18 09:31 Dose: 40 mg Polyethylene Glycol (Miralax) 17 gm PO BID [facility] Last Admin: 06/16/18 17:48 Dose: 17 gm Sitagliptin Phosphate (Januvia) 100 mg PO DAILY [facility] Last Admin: 06/16/18 09:31 Dose: 100 mg Attending/Attestation - Attestation I have personally seen and examined this patient.: Yes I have fully participated in the care of the patient.: Yes I have reviewed all pertinent clinical information, including history, physical exam and plan: Yes Notes (Text): 06/16/18 19:00 Chart reviewed. Pt was interviewed and examined. Agree with Dr. Gonzáles's assessment and plan. Discussed with the patient liberal (when needed) use of Miralax and being proactive in maintaining regular bowel habits. A screening colonoscopy in February of this year was normal, per patient.
--- NOTE | 2018-06-16 16:34 | PN ---
Copied To: James Mustafa DO Attending MD: James Mustafa DO DATE: 06/16/2018 SUBJECTIVE: I saw her resting in bed. She is not feeling well, still with abdominal pain and nauseous feeling. She is only on a liquid diet, not doing well with it. She is currently on Amaryl, metronidazole IV, Januvia, Maxipime, MiraLax, morphine, Protonix, Rocephin, IV fluids, Zofran. She is still very uncomfortable. PHYSICAL EXAMINATION: VITAL SIGNS: She has a 98.1 temp, 59 pulse, 140/84 blood pressure, 20 respiratory rate, 99% O2 sat on room air. GENERAL: She is not hungry and does not want to eat. HEENT: Head is atraumatic, normocephalic. Throat is dry. NECK: Supple. HEART: Regular rate. LUNGS: Decreased breath sounds, but clear. Abdomen is distended. Decreased bowel sounds. There is discomfort. No guarding or rebound. EXTREMITIES: No edema. LABORATORY DATA: She is here for possible colitis and constipation, UTI. She has a 143 sodium, potassium 4.2, BUN 9, creatinine 1, GFR is greater than 60, sugar is 103, calcium is 8.9, total bili is 0.4, AST is 28, ALT is 28, alk phos is 84, total protein 6.5. White count 6.1, hemoglobin 10.1, hematocrit 30.6, platelets of 167. Urine with large leukocytes. ASSESSMENT AND PLAN: As per Infectious Disease and GI, continue aggressive treatment and care. We will check her labs tomorrow. She is still on clear fluids and she is not even taking that. Continue with the IV antibiotics for possible helping her colitis and also the urinary tract infection. James Mustafa DO
[2018-06-16] MEDS ORDERED: Morphine 2 mg/ml ISec IVP PRN (21:26)
[2018-06-17] MEDS: Morphine 4 mg/ml ISec IVP PRN ×5 (01:33→21:17)
[2018-06-17] MEDS: metroNIDAZOLE IV 500 mg/100 ml 500 MG/100 ML BAG IVPB SCH ×3 (05:23→22:08)
[2018-06-17] MEDS: Cefepime 1gm in NS 100ml 1 GM/100 ML BAG IVPB SCH ×3 (06:36→21:10)
[2018-06-17 07:15] LABS: HEMOGLOBIN 9.9 g/dL (12.0-16.0); MEAN CELL VOLUME 75.5 fl (80.0-105.0); MEAN CORPUSCULAR HGB CONC 33.1 g/dl (31.0-37.0); MEAN PLATELET VOLUME 9.2 fl (7.0-11.0); RBC 3.96 10^6/uL (3.5-6.1); RED CELL DISTRIBUTION WIDTH 14.2 % (11.5-14.5); WHITE BLOOD COUNT 6.6 10^3/ul (4.5-11.0)
[2018-06-17 07:42] LABS: ALB/GLOB RATIO 1.3 (1.1-1.8); ALBUMIN 3.6 g/dL (3.0-4.8); ALT/SGPT 26 U/L (7-56); AST/SGOT 25 U/L (14-36); BLOOD UREA NITROGEN 7 mg/dL (7-21); CALCIUM 9.1 mg/dL (8.4-10.5); GFR AFRICAN-AMERICAN > 60; GFR NON-AFRICAN AMERICAN 56
[2018-06-17] MEDS: Insulin Reg-LOW-Coverage SC SCH ×4 (09:51→23:23)
[2018-06-17] MEDS: POLYETHYLENE GLYCOL 3350 17 GM/Dose PACKET PO SCH ×2 (09:51→17:47)
[2018-06-17] MEDS ORDERED: Magnesium Citrate Oral SOL (300 ml) PO ONE (12:05)
--- NOTE | 2018-06-17 13:12 | CP.PCM.PN ---
<Thomas Gonzáles - Last Filed: 06/17/18 13:07> Subjective - Date & Time of Evaluation Date of Evaluation: 06/17/18 Time of Evaluation: 08:00 - Subjective Subjective: PGY6 GI Fellow Progress Note Patient seen and examined bedside this morning with daughter at bedside. The patient states she had a very small liquid bowel movement this morning. Pain has subsided somewhat but still remains in the lower pelvis. Pain often worst with and after urination. No events overnight. 12 system ROS performed and negative except where stated. Objective - Vital Signs/Intake and Output Vital Signs (last 24 hours): Temp Pulse Resp BP Pulse Ox 98.4 F 55 L 18 163/77 H 99 06/17/18 08:33 06/17/18 08:33 06/17/18 08:33 06/17/18 08:33 06/17/18 08:33 Intake and Output: 06/17/18 06/17/18 06:59 18:59 Intake Total 3440 Balance 3440 - Medications Medications: Current Medications Atorvastatin Calcium (Lipitor) 80 mg PO DIN [facility] Carvedilol (Coreg) 25 mg PO BID [facility] Last Admin: 06/17/18 11:01 Dose: 25 mg Glimepiride (Amaryl) 2 mg PO DAILY [facility] Last Admin: 06/17/18 09:51 Dose: 2 mg Sodium Chloride (Sodium Chloride 0.9%) 1,000 mls @ 100 mls/hr IV .Q10H [facility] Last Admin: 06/15/18 14:34 Dose: 100 mls/hr Metronidazole (Flagyl) 500 mg in 100 mls @ 100 mls/hr IVPB Q8 [facility] PRN Reason: Protocol Last Admin: 06/17/18 05:23 Dose: 100 mls/hr Cefepime HCl (Maxipime 1gm) 1 gm in 100 mls @ 100 mls/hr IVPB Q8 [facility] PRN Reason: Protocol Last Admin: 06/17/18 06:36 Dose: 100 mls/hr Insulin Human Regular (Humulin R Low) 0 units SC ACHS [facility] PRN Reason: Protocol Last Admin: 06/17/18 09:51 Dose: Not Given Losartan Potassium (Cozaar) 50 mg PO DAILY [facility] Last Admin: 06/17/18 11:01 Dose: 50 mg Morphine Sulfate (Morphine) 2 mg IVP Q3H PRN PRN Reason: Pain, moderate (4-7) Last Admin: 06/17/18 11:05 Dose: 2 mg Ondansetron HCl (Zofran Inj) 4 mg IVP Q6H PRN PRN Reason: Nausea/Vomiting Last Admin: 06/16/18 16:02 Dose: 4 mg Pantoprazole Sodium (Protonix Inj) 40 mg IVP DAILY [facility] Last Admin: 06/17/18 09:50 Dose: 40 mg Polyethylene Glycol (Miralax) 17 gm PO BID [facility] Last Admin: 06/17/18 09:51 Dose: 17 gm Sitagliptin Phosphate (Januvia) 100 mg PO DAILY [facility] Last Admin: 06/17/18 09:51 Dose: 100 mg Zolpidem Tartrate (Ambien) 5 mg PO HS [facility] PRN Reason: Protocol - Labs Labs: 06/17/18 06:30 06/17/18 06:30 - Constitutional Appears: Non-toxic, No Acute Distress - Eye Exam Eye Exam: EOMI, PERRL - ENT Exam ENT Exam: Mucous Membranes Moist - Respiratory Exam Respiratory Exam: Clear to Ausculation Bilateral. absent: Rales, Rhonchi, Wheezes - Cardiovascular Exam Cardiovascular Exam: RRR, +S1, +S2 - GI/Abdominal Exam GI & Abdominal Exam: Soft, Tenderness (suprapubic), Normal Bowel Sounds. absent : Distended, Firm, Guarding, Rigid, Organomegaly - Extremities Exam Extremities Exam: Normal Inspection. absent: Pedal Edema - Neurological Exam Neurological Exam: Alert, Awake, Oriented x3 - Psychiatric Exam Psychiatric exam: Normal Affect, Normal Mood - Skin Skin Exam: Dry, Warm Assessment and Plan - Assessment and Plan (Free Text) Assessment: Patient is a 63yo female with PMHx significant for chronic constipation previously on Linzess, diverticulosis, GERD, uterine fibroid, UTI, diabetes, anemia, spinal stenosis, and anxiety who presented for abdominal pain -Abdominopelvic pain - suprapubic suspect 2/2 Pseudomonas UTI -Recurrent UTIs -Chronic idiopathic constipation -Diverticulosis Plan: -Persistent dysuria, consider addition of Pyridium for symptom management -Continue Miralax 17g PO BID -Add one dose Magnesium Citrate today -Antibiotics for UTI per primary service -Diet as tolerated -Do not suspect clinically significant colitis at this time Case discussed with GI attending, Dr Bardales <Bryson Bardales - Last Filed: 06/17/18 15:31> Objective - Vital Signs/Intake and Output Vital Signs (last 24 hours): Temp Pulse Resp BP Pulse Ox 98.4 F 55 L 18 163/77 H 99 06/17/18 08:33 06/17/18 08:33 06/17/18 08:33 06/17/18 08:33 06/17/18 08:33 Intake and Output: 06/17/18 06/17/18 06:59 18:59 Intake Total 3440 Balance 3440 - Medications Medications: Current Medications Atorvastatin Calcium (Lipitor) 80 mg PO DIN [facility] Carvedilol (Coreg) 25 mg PO BID [facility] Last Admin: 06/17/18 11:01 Dose: 25 mg Glimepiride (Amaryl) 2 mg PO DAILY [facility] Last Admin: 06/17/18 09:51 Dose: 2 mg Sodium Chloride (Sodium Chloride 0.9%) 1,000 mls @ 100 mls/hr IV .Q10H [facility] Last Admin: 06/15/18 14:34 Dose: 100 mls/hr Metronidazole (Flagyl) 500 mg in 100 mls @ 100 mls/hr IVPB Q8 [facility] PRN Reason: Protocol Last Admin: 06/17/18 13:28 Dose: 100 mls/hr Cefepime HCl (Maxipime 1gm) 1 gm in 100 mls @ 100 mls/hr IVPB Q8 [facility] PRN Reason: Protocol Last Admin: 06/17/18 14:50 Dose: 100 mls/hr Insulin Human Regular (Humulin R Low) 0 units SC ACHS [facility] PRN Reason: Protocol Last Admin: 06/17/18 09:51 Dose: Not Given Losartan Potassium (Cozaar) 50 mg PO DAILY [facility] Last Admin: 06/17/18 11:01 Dose: 50 mg Morphine Sulfate (Morphine) 2 mg IVP Q3H PRN PRN Reason: Pain, moderate (4-7) Last Admin: 06/17/18 14:23 Dose: 2 mg Ondansetron HCl (Zofran Inj) 4 mg IVP Q6H PRN PRN Reason: Nausea/Vomiting Last Admin: 06/17/18 14:24 Dose: 4 mg Pantoprazole Sodium (Protonix Inj) 40 mg IVP DAILY [facility] Last Admin: 06/17/18 09:50 Dose: 40 mg Polyethylene Glycol (Miralax) 17 gm PO BID [facility] Last Admin: 06/17/18 09:51 Dose: 17 gm Sitagliptin Phosphate (Januvia) 100 mg PO DAILY [facility] Last Admin: 06/17/18 09:51 Dose: 100 mg Zolpidem Tartrate (Ambien) 5 mg PO HS [facility] PRN Reason: Protocol - Labs Labs: 06/17/18 06:30 06/17/18 06:30 Attending/Attestation - Attestation I have personally seen and examined this patient.: Yes I have fully participated in the care of the patient.: Yes I have reviewed all pertinent clinical information, including history, physical exam and plan: Yes Notes (Text): 06/17/18 15:25 Chart and labs reviewed. Pt interviewed and examined. Pt/s ?daughter was present at bedside. The pt now reports having watery bowel movements and somewhat improved lower abdominal tenderness. Feels better overall. Treated for UTI. Titrate Miralax to 1 bm/day. Agree with Dr. Corral's findings on the exam, assessment and plan. Continue current management. Discussed with the pt and her ?daughter. 06/17/18 15:30
--- NOTE | 2018-06-17 13:32 | PN ---
Copied To: James Mustafa DO Attending MD: James Mustafa DO DATE: 06/17/2018 SUBJECTIVE: Mackenzie walking very gingerly in her room with daughter at side. She has spinal stenosis, but she is moving her body better. She is on Amaryl, metronidazole IV, insulin coverage, Januvia, cefepime IV, MiraLax twice a day now, morphine, Protonix IV, IV fluids and Zofran IV. She is starting to get a little bit of liquid. She is doing better. PHYSICAL EXAMINATION: VITAL SIGNS: She has 98.4 temperature, 55 pulse, 163/87, 163/77 blood pressure, I will put her back on her blood pressure medications, as the blood pressure finally came up, 18 respiratory rate, 99% sat on room air. HEENT: Head is atraumatic, normocephalic. HEART: Regular rate with decreased breath sounds, but clear. ABDOMEN: Soft. Positive bowel sounds, but decreased tenderness. EXTREMITIES: No edema. LABORATORY DATA: She has a 6.6 white count, 9.9 hemoglobin, 29.9 hematocrit with 183 platelets. 142 sodium, potassium is 4. BUN is 7, creatinine 1, GFR is greater 56, sugar is 98, calcium is 9.1, total bili is 0.5, AST is 25, ALT is 26, alk phos 80, total protein 6.4 ASSESSMENT AND PLAN: So, she is slowly improving. She is being seen by Infectious Disease and GI. She had , chronic constipation, diabetic, spinal stenosis, anxiety. Hopefully, tomorrow if she continues to improve we will discharge her now that she is improving with her diet and able to keep some food down. She is here for abdominal pain, colitis, constipation, urinary tract infection, gastroesophageal reflux disease, hypertension. James Mustafa DO MTDD
[2018-06-17] MEDS: Sodium Chloride 0.9% 1,000 ML IV SCH ×2 (17:48→21:09)
--- NOTE | 2018-06-17 19:05 | PN ---
Copied To: Ariel Jimenez MD Attending MD: Ariel Jimenez MD DATE: 06/17/2018 SUBJECTIVE: The patient is in bed, in no acute distress, nontoxic. PHYSICAL EXAMINATION: VITAL SIGNS: Temperature is 99, blood pressure is 160/70, respiratory rate of 18, and heart rate of 65. HEENT: Unremarkable. NECK: Supple. LUNGS: Decreased breath sounds. HEART: Normal S1, S2. ABDOMEN: Soft and nontender. No organomegaly. No rebound, guarding, or masses. LABORATORY EXAMINATION: Reveals a white count of 6.6, hemoglobin of 9. Chemistries reveal a BUN of 7, creatinine of 1. Urinalysis, 10 to 15 wbc's, large leukocyte esterase. The patient's blood cultures are negative. Urine culture has Pseudomonas 50,000 to 100,000. The sensitivity of Pseudomonas is pending. ASSESSMENT AND PLAN: This is a 63-year-old female with history of chronic constipation, colitis, diverticulosis, gastroesophageal reflux disease, uterine fibroid, diabetic, anemia, spinal stenosis, anxiety. Admitted with lower abdominal pain and large leukocyte, 10 to 15 wbc's with Pseudomonas urinary tract infection. The patient was admitted with pelvic and lower abdominal pain with positive urinalysis and no SIRS criteria. Currently on cefepime and Flagyl. Awaiting for the sensitivity of the Pseudomonas and Pseudomonas urinary tract infection. We will follow closely with you. Gastroenterology is following the patient. Ariel Jimenez MD
[2018-06-18] MEDS: Morphine 2 mg/ml ISec IVP PRN ×2 (00:36→04:36)
[2018-06-18] MEDS: metroNIDAZOLE IV 500 mg/100 ml 500 MG/100 ML BAG IVPB SCH (06:10)
[2018-06-18] MEDS: Cefepime 1gm in NS 100ml 1 GM/100 ML BAG IVPB SCH (07:20)
[2018-06-18 07:30] VITALS: BP 134/56; PULSE 62; RESP 25; TEMP 98.4; O2SAT 97
[2018-06-18 07:34] LABS: HEMOGLOBIN 9.2 g/dL (12.0-16.0); MEAN CELL VOLUME 76.1 fl (80.0-105.0); MEAN CORPUSCULAR HGB CONC 32.9 g/dl (31.0-37.0); MEAN PLATELET VOLUME 8.9 fl (7.0-11.0); RBC 3.68 10^6/uL (3.5-6.1); RED CELL DISTRIBUTION WIDTH 14.3 % (11.5-14.5); WHITE BLOOD COUNT 5.9 10^3/ul (4.5-11.0)
--- NOTE | 2018-06-18 07:38 | CP.PCM.PN ---
Subjective - Date & Time of Evaluation Date of Evaluation: 06/18/18 Time of Evaluation: 07:00 - Subjective Subjective: GI Fellow PGY5 Progress Note Patient seen and examined bedside at bedside, patient having small bowel movements. Pain is improving but still remains in the lower pelvis area. Dysuria improving, no fevers or chills. No events overnight. ROS: A 12 system ROS performed and negative except as above Objective - Vital Signs/Intake and Output Vital Signs (last 24 hours): Temp Pulse Resp BP Pulse Ox 98.4 F 62 25 H 134/56 L 97 06/18/18 06:00 06/18/18 06:00 06/18/18 06:00 06/18/18 06:00 06/18/18 06:00 Intake and Output: 06/18/18 06/18/18 06:59 18:59 Intake Total 2700 Balance 2700 - Medications Medications: Current Medications Atorvastatin Calcium (Lipitor) 80 mg PO DIN [facility] Last Admin: 06/17/18 17:47 Dose: 80 mg Carvedilol (Coreg) 25 mg PO BID [facility] Last Admin: 06/17/18 17:46 Dose: 25 mg Glimepiride (Amaryl) 2 mg PO DAILY [facility] Last Admin: 06/17/18 09:51 Dose: 2 mg Sodium Chloride (Sodium Chloride 0.9%) 1,000 mls @ 100 mls/hr IV .Q10H [facility] Last Admin: 06/17/18 21:09 Dose: 100 mls/hr Metronidazole (Flagyl) 500 mg in 100 mls @ 100 mls/hr IVPB Q8 [facility] PRN Reason: Protocol Last Admin: 06/18/18 06:10 Dose: 100 mls/hr Cefepime HCl (Maxipime 1gm) 1 gm in 100 mls @ 100 mls/hr IVPB Q8 [facility] PRN Reason: Protocol Last Admin: 06/18/18 07:20 Dose: 100 mls/hr Insulin Human Regular (Humulin R Low) 0 units SC ACHS [facility] PRN Reason: Protocol Last Admin: 06/17/18 23:23 Dose: Not Given Losartan Potassium (Cozaar) 50 mg PO DAILY [facility] Last Admin: 06/17/18 11:01 Dose: 50 mg Morphine Sulfate (Morphine) 2 mg IVP Q3H PRN PRN Reason: Pain, moderate (4-7) Stop: 06/20/18 00:01 Last Admin: 06/18/18 04:36 Dose: 2 mg Ondansetron HCl (Zofran Inj) 4 mg IVP Q6H PRN PRN Reason: Nausea/Vomiting Last Admin: 06/18/18 04:35 Dose: 4 mg Pantoprazole Sodium (Protonix Inj) 40 mg IVP DAILY [facility] Last Admin: 06/17/18 09:50 Dose: 40 mg Polyethylene Glycol (Miralax) 17 gm PO BID [facility] Last Admin: 06/17/18 17:47 Dose: 17 gm Sitagliptin Phosphate (Januvia) 100 mg PO DAILY [facility] Last Admin: 06/17/18 09:51 Dose: 100 mg Zolpidem Tartrate (Ambien) 5 mg PO HS [facility] PRN Reason: Protocol Last Admin: 06/17/18 22:21 Dose: 5 mg - Labs Labs: 06/17/18 06:30 06/17/18 06:30 - Constitutional Appears: Well, Non-toxic, No Acute Distress - Head Exam Head Exam: ATRAUMATIC, NORMAL INSPECTION, NORMOCEPHALIC - Eye Exam Eye Exam: EOMI, Normal appearance, PERRL - ENT Exam ENT Exam: Mucous Membranes Moist - Neck Exam Neck Exam: Full ROM - Respiratory Exam Respiratory Exam: Clear to Ausculation Bilateral, NORMAL BREATHING PATTERN - Cardiovascular Exam Cardiovascular Exam: REGULAR RHYTHM, RRR, +S1, +S2 - GI/Abdominal Exam GI & Abdominal Exam: Soft, Tenderness, Normal Bowel Sounds. absent: Distended, Firm, Guarding, Organomegaly - Rectal Exam Rectal Exam: Deferred - Extremities Exam Extremities Exam: Full ROM, Normal Inspection - Back Exam Back Exam: NORMAL INSPECTION - Neurological Exam Neurological Exam: Alert, Awake, Oriented x3 - Psychiatric Exam Psychiatric exam: Normal Affect, Normal Mood - Skin Skin Exam: Dry, Intact, Normal Color, Warm Assessment and Plan - Assessment and Plan (Free Text) Assessment: Patient is a 63yo female with PMHx significant for chronic constipation previously on Linzess, diverticulosis, GERD, uterine fibroid, UTI, diabetes, anemia, spinal stenosis, and anxiety who presented for abdominal pain. 1. Abdominopelvic pain 2. Recurrent UTIs 3. Chronic idiopathic constipation 4. Diverticulosis Plan: -Continue supportive care with pain control and antiemetics -Continue abx for UTI per primary service -Continue Miralax 17g PO for 1 BM daily -Diet as tolerated -Do not suspect clinically significant colitis at this time -Recommend outpt followup with primary GI doctor Discussed case with Dr. Alves and he agrees with the above mentioned assessment and plan.
[2018-06-18 07:55] LABS: ALB/GLOB RATIO 1.3 (1.1-1.8); ALBUMIN 3.3 g/dL (3.0-4.8); ALT/SGPT 26 U/L (7-56); AST/SGOT 25 U/L (14-36); BLOOD UREA NITROGEN 8 mg/dL (7-21); CALCIUM 9.1 mg/dL (8.4-10.5); GFR AFRICAN-AMERICAN > 60; GFR NON-AFRICAN AMERICAN 56
[2018-06-18] MEDS: POLYETHYLENE GLYCOL 3350 17 GM/Dose PACKET PO SCH (09:19)
[2018-06-18] MEDS: Insulin Reg-LOW-Coverage SC SCH (09:20)
--- NOTE | 2018-06-18 22:46 | DS ---
Copied To: James Mustafa DO Attending MD: James Mustafa DO DISCHARGE SUMMARY: She did quite well in the hospital. She was not feeling well when she came in, now she has improved greatly. She was here for severe abdominal pain, colitis, UTI, GERD and now she is improved enough for she is eating, the pain is much better and she was able to be discharged. She will go home on Amaryl, Ambien, Coreg, Cozaar, Januvia, Lipitor, MiraLax twice a day, pantoprazole. She will also be on Cipro 500 twice a day for 8 more days after the sensitivity and culture came back. PHYSICAL EXAMINATION: VITAL SIGNS: She has a 98.4 temperature, 62 pulse, 134/56 blood pressure, 25 respiratory rate, 97% O2 sat on room air. HEENT: Head: Atraumatic, normocephalic. HEART: Regular rate. LUNGS: Decreased breath sounds, but clear. ABDOMEN: Soft, obese, nontender. Positive bowel sounds and positive bowel movements. EXTREMITIES: No edema. LABORATORY DATA: She has a white count of 5.9, hemoglobin of 9.2, hematocrit 28, platelets are 150. Sodium 142, potassium is 4, BUN is 7, creatinine is 1, GFR is 56, sugar is 98, calcium is 9.2, total bili is 0.5, AST is 25, ALT is 26, alk phos 88, total protein 6.2, albumin is 3.6. She is being seen by Infectious Disease. We will change her from IV antibiotic to Cipro which was what it was sensitive to. She was able to be discharged. I will see her in the office in about a week James Mustafa DO
== END 2018-06-18 14:21 | disposition home or self-care (01) | DRG 690 ==
LOC: ED 22:54 → ERH 06-15 05:31 → 5RNO 06-15 07:46 → OBSVTOIN 06-16 11:56 → 5RNO 06-17 16:54
PROVIDERS: ADMIT Family Medicine; ATTEND Family Medicine
DX: N39.0 Urinary tract infection, site not specified (principal); K52.9 Noninfective gastroenteritis and colitis, unspecified; K59.04 Chronic idiopathic constipation; B96.5 Pseudomonas (aeruginosa) (mallei) (pseudomallei) as the cause of diseases classified elsewhere; K21.9 Gastro-esophageal reflux disease without esophagitis; E11.9 Type 2 diabetes mellitus without complications; E78.00 Pure hypercholesterolemia, unspecified; I10 Essential (primary) hypertension; D57.1 Sickle-cell disease without crisis; J45.909 Unspecified asthma, uncomplicated; K57.30 Diverticulosis of large intestine without perforation or abscess without bleeding; M48.00 Spinal stenosis, site unspecified; F41.9 Anxiety disorder, unspecified; H91.91 Unspecified hearing loss, right ear; Z87.440 Personal history of urinary (tract) infections

== ENCOUNTER 2018-10-27 00:16 | Emergency (ER) | payer MEDICARE ==
[2018-10-27 00:16] VITALS: BMI 33.6
[2018-10-27 00:35] VITALS: RESP 18; O2SAT 100
--- NOTE | 2018-10-27 01:22 | ED PDOC ---
Arrival/HPI - General Chief Complaint: High Blood Pressure Time Seen by Provider: 10/27/18 00:58 Historian: Patient - History of Present Illness Narrative History of Present Illness (Text): 10/27/18 01:22 Mackenzie Lopez is a 63 year old female, whose past medical history includes chronic back pain, colitis, diverticulitis, GERD, uterine fibroid, UTI, diabetes, anemia, spinal stenosis, and anxiety, presents to the emergency de partment complaining of elevated blood pressure for the past 3 days. Patient reports her blood pressure is higher than usual and the highest today was 190/102. Patient is complaint with her blood pressure medications and denies any change in blood pressure medication, but reports change in pain medication. She is taking new pain medication prescribed by her neurologist for her migraines, but caused her pressure to elevate. She called her neurologist who recommended patient to stop taking them. Patient also reports a sharp left buddhism headache 2 days ago that is not persistent with her migraines which are usually across her forehead. Patient reports chronic body aches secondary to her fibromyalgia that has not changed. The patient denies any fever, chills, chest pain, shortness of breath, abdominal pain, nausea, vomiting, diarrhea, urinary symptoms, back pain, neck pain, dizziness, or any other complaints. Time/Duration: Other (3 days) Symptom Onset: Gradual Symptom Course: Unchanged Activities at Onset: Light Context: Home Past Medical History - Provider Review Nursing Documentation Reviewed: Yes - Past History Past History: No Previous - Infectious Disease Hx of Infectious Diseases: None - Tetanus Immunization Tetanus Immunization: Unknown - Reproductive Menopause: Yes - Cardiac Hx Cardiac Disorders: Yes Hx Hypertension: Yes - Pulmonary Hx Respiratory Disorders: Yes Hx Asthma: Yes (Some times. uses advair sometimes.) - Neurological Hx Neurological Disorder: Yes - HEENT Hx HEENT Disorder: Yes (Right ear hearing diminished , Hissing voice in Right ear.) Hx Deafness: Yes (Right ear.) - Renal Hx Renal Disorder: No - Endocrine/Metabolic Hx Endocrine Disorders: Yes Hx Diabetes Mellitus Type 2: Yes - Hematological/Oncological Hx Blood Disorders: Yes (SICKLE CELL) Hx Anemia: Yes Hx Sickle Cell Disease: Yes - Integumentary Hx Dermatological Disorder: No - Musculoskeletal/Rheumatological Hx Musculoskeletal Disorders: Yes Hx Back Pain: Yes Hx Falls: Yes Hx Spinal Stenosis: Yes - Gastrointestinal Hx Gastrointestinal Disorders: Yes (colitis and diverticulitis) Hx Gastroesophageal Reflux: Yes - Genitourinary/Gynecological Hx Genitourinary Disorders: Yes Other/Comment: Fibroid Hx positive. - Psychiatric Hx Psychophysiologic Disorder: Yes Hx Anxiety: Yes Hx Substance Use: No - Past Surgical History Past Surgical History: No Previous - Surgical History Other/Comment: Endoscopy + colonoscopy-2 polyps removed. - Anesthesia Hx Anesthesia: Yes Hx Anesthesia Reactions: No Hx Malignant Hyperthermia: No - Suicidal Assessment Feels Threatened In Home Enviroment: No Family/Social History - Physician Review Nursing Documentation Reviewed: Yes Family/Social History: No Known Family HX Smoking Status: Never Smoked Hx Alcohol Use: No Hx Substance Use: No Hx Substance Use Treatment: No Allergies/Home Meds Allergies/Adverse Reactions: Allergies ketorolac tromethamine [From Toradol] Adverse Reaction (Verified 10/27/18 01:20) NAUSEA Home Medications: Home Meds Medication Instructions Recorded Confirmed RX: Carvedilol [Coreg] 25 mg PO BID 09/24/12 06/17/18 RX: Rosuvastatin Calcium [Crestor] 20 mg PO DAILY 09/16/14 06/15/18 RX: Albuterol Sulfate [Proair Hfa] 0.09 mg IH QID PRN 03/18/15 06/15/18 RX: Dexlansoprazole [Dexilant] 60 mg PO DAILY 03/18/15 06/15/18 RX: Zolpidem [Ambien] 10 mg PO HS 03/18/15 06/15/18 RX: Losartan [Cozaar] 50 mg PO DAILY 06/17/18 06/17/18 Review of Systems - Physician Review All systems were reviewed & negative as marked: Yes - Review of Systems Constitutional: absent: Fevers, Other (Chills) Respiratory: absent: SOB Cardiovascular: absent: Chest Pain Gastrointestinal: absent: Abdominal Pain, Diarrhea, Nausea, Vomiting Genitourinary Female: absent: Dysuria, Frequency, Hematuria Musculoskeletal: absent: Back Pain, Neck Pain Neurological: Headache. absent: Dizziness Physical Exam Vital Signs Reviewed: Yes Vital Signs Temp Pulse Resp BP Pulse Ox 10/27/18 00:34 98.7 F 52 L 18 170/88 H 100 Temperature: Afebrile Blood Pressure: Hypertensive Pulse: Bradycardic Respiratory Rate: Normal Appearance: Positive for: Well-Appearing, Non-Toxic, Comfortable Pain Distress: None Mental Status: Positive for: Alert and Oriented X 3 - Systems Exam Head: Present: Atraumatic, Normocephalic Pupils: Present: PERRL Extroacular Muscles: Present: EOMI Conjunctiva: Present: Normal Mouth: Present: Moist Mucous Membranes Neck: Present: Normal Range of Motion. No: Meningeal Signs Respiratory/Chest: Present: Clear to Auscultation, Good Air Exchange. No: Respiratory Distress, Accessory Muscle Use Cardiovascular: Present: Regular Rate and Rhythm, Normal S1, S2. No: Murmurs Abdomen: No: Tenderness, Distention, Peritoneal Signs Back: Present: Normal Inspection Upper Extremity: Present: Normal Inspection. No: Cyanosis, Edema Lower Extremity: Present: Normal Inspection. No: Edema Neurological: Present: GCS=15, CN II-XII Intact, Speech Normal Skin: Present: Warm, Dry, Normal Color. No: Rashes Psychiatric: Present: Alert, Oriented x 3, Normal Insight, Normal Concentration Medical Decision Making ED Course and Treatment: 10/27/18 01:22 Impression: 63 year old female presents complaining of elevated blood pressure for the past 3 days and sharp left buddhism headache 2 days ago not persistent with her migraine headaches. Plan: -- CT Head -- Labs -- EKG -- Reassess and disposition Prior Visits: Notes and results from previous visits were reviewed. Progress Notes: EKG shows Sinus bradycardia at 51 BPM . Normal axis, Normal intervals, No ST elevations or depression. Interpreted by me 10/27/18 03:53 Repeat blood pressure is 156/70 EXAM: CT Head without Intravenous Contrast. Electronically signed on Oct 27, 2018 3:35:09 AM EST by: Andrew Alfonso M.D., ANUPAM IMPRESSION: No acute intracranial abnormality. 10/27/18 04:09 On reevaluation the patient is in no acute distress. I have discussed the results and plan with the patient, who expresses understanding. Patient given the opportunity to ask question, all questions were answered and there is agreement with the plan to discharge the patient home. Patient is stable for discharge. Patient was instructed to follow up with physician/clinic in 1-2 days or return if symptoms persist/worsen or new concerning symptoms arise. - Lab Interpretations I have reviewed the lab results: Yes - EKG Interpretation Interpreted by ED Physician: Yes Type: 12 lead EKG - Scribe Statement The provider has reviewed the documentation as recorded by the Keny Grossman Provider Scribe Attestation: All medical record entries made by the Harrietibcrystal were at my direction and personally dictated by me. I have reviewed the chart and agree that the record accurately reflects my personal performance of the history, physical exam, medical decision making, and the department course for this patient. I have also personally directed, reviewed, and agree with the discharge instructions and disposition. Disposition/Present on Arrival - Present on Arrival Any Indicators Present on Arrival: No History of DVT/PE: No History of Uncontrolled Diabetes: No Urinary Catheter: No History of Decub. Ulcer: No History Surgical Site Infection Following: None - Disposition Have Diagnosis and Disposition been Completed?: Yes Diagnosis: Hypertension, Headache Disposition: HOME/ ROUTINE Disposition Time: 04:05 Patient Plan: Discharge Condition: IMPROVED Discharge Instructions (ExitCare): High Blood Pressure (DC), Headache, Adult (DC) Additional Instructions: MACKENZIE LOPEZ, thank you for letting us take care of you today. Your provider was Annalee Mcgregor MD and you were treated for HYPERTENSION. The emergency medical care you received today was directed at your acute symptoms. If you were prescribed any medication, please fill it and take as directed. It may take several days for your symptoms to resolve. Return to the Emergency Department if your symptoms worsen, do not improve, or if you have any other problems. Please contact your doctor in 1-2 days for follow up appointment. Bring any paperwork you were given at discharge with you along with any medications you are taking to your follow up visit. Our treatment cannot replace ongoing medical care by a primary care provider outside of the emergency department. Thank you for allowing the [facility] team to be part of your care today. Forms: [employer] ([place])
[2018-10-27 02:02] LABS: BASO # 0.03 K/mm3 (0.0-2.0); BASO % 0.4 % (0.0-3.0); EOS # 0.2 (0.0-0.7); GRAN # 5.81 (1.4-6.5); GRAN % 74.9 % (50.0-68.0); HEMOGLOBIN 10.7 g/dL (12.0-16.0); LYMPH # 1.4 (1.2-3.4); LYMPH % 17.4 % (22.0-35.0); MEAN CORPUSCULAR HEMOGLOBIN 25.4 pg (25.0-35.0); MEAN CORPUSCULAR HGB CONC 32.9 g/dl (31.0-37.0); MEAN PLATELET VOLUME 8.8 fl (7.0-11.0); MONO # 0.3 (0.1-0.6); MONO % 4.3 % (1.0-6.0); RBC 4.22 10^6/uL (3.5-6.1); RED CELL DISTRIBUTION WIDTH 15.6 % (11.5-14.5); WHITE BLOOD COUNT 7.8 10^3/uL (4.5-11.0)
[2018-10-27 02:13] LABS: ALB/GLOB RATIO 1.3 (1.1-1.8); ALBUMIN 4.2 g/dL (3.0-4.8); ALT/SGPT 29 U/L (7-56); AST/SGOT 33 U/L (14-36); BLOOD UREA NITROGEN 14 mg/dL (7-21); CALCIUM 9.7 mg/dL (8.4-10.5); GFR NON-AFRICAN AMERICAN 50
[2018-10-27 03:52] VITALS: BP 156/70; PULSE 56
[2018-10-27 03:54] VITALS: TEMP 98.5
--- NOTE | 2018-10-27 10:56 | CT ---
Date of service: 10/27/2018 PROCEDURE: CT HEAD WITHOUT CONTRAST. HISTORY: h/a, htn COMPARISON: None available. TECHNIQUE: Axial computed tomography images were obtained through the head/brain without intravenous contrast. Radiation dose: Total exam DLP = 855.77 mGy-cm. This CT exam was performed using one or more of the following dose reduction techniques: Automated exposure control, adjustment of the mA and/or kV according to patient size, and/or use of iterative reconstruction technique. FINDINGS: HEMORRHAGE: No intracranial hemorrhage. BRAIN: Diffuse atrophy with prominence of the ventricles and sulci noted. No mass effect or edema. Scattered periventricular and subcortical white matter hypodensities, which are nonspecific, but often seen with chronic microvascular ischemic disease. Please note that MRI with diffusion imaging is more sensitive in the detection of acute ischemic event. VENTRICLES: No hydrocephalus. CALVARIUM: Unremarkable. PARANASAL SINUSES: Unremarkable as visualized. No significant inflammatory changes. MASTOID AIR CELLS: Unremarkable as visualized. No inflammatory changes. OTHER FINDINGS: None. IMPRESSION: Generalized atrophy. Nonspecific white matter changes. Preliminary impression was provided by [employer].
--- NOTE | 2018-10-27 14:45 | CARD ---
APPROVED REPORT Date of service: 10/27/2018 EKG Measurement Heart [id number] <Conclusion> Sinus bradycardia Otherwise normal ECG
== END 2018-10-27 04:10 | disposition home or self-care (01) ==
LOC: ED 00:16
DX: I10 Essential (primary) hypertension (principal); R51 Headache; E11.9 Type 2 diabetes mellitus without complications